=== PATIENT | male | born 2000 | race Two or more races ===

== ENCOUNTER 2023-11-22 09:02 | Emergency (ER) | payer OTHER ==
[~2023-11-22] VITALS: Ht 170.2 cm; Wt 75.3 kg
[2023-11-22 09:53] LABS: Basophils # (auto) 0 10 ^3/uL (0-0.2); Basophils % (auto) 0.5 % (0.0-2.0); Eosinophils # (auto) 0 10 ^3/uL (0-0.8); Eosinophils % (auto) 0.3 % (0.0-7.0); Hematocrit 45.1 % (41.0-53.0); Hemoglobin 15.6 g/dL (13.5-17.5); Lymphocytes # (auto) 1.8 10 ^3/uL (0.4-5.4); Lymphocytes % (auto) 28.8 % (10.0-50.0); Mean Corpuscular Hemoglobin 30.4 pg (28.0-32.0); Mean Corpuscular Hgb Conc. 34.7 g/dL (32.0-36.0); Mean Corpuscular Volume 87.7 fL (80.0-100.0); Monocytes # (auto) 0.3 10 ^3/uL (0-1.3); Monocytes % (auto) 4.3 % (0.0-12.0); Neutrophils % (auto) 66.1 % (37.0-80.0); Nucleated Red Blood Cells % 0.1 %; Platelet Count (auto) 257 10^3/uL (140-450); Red Blood Cells 5.14 10^6/uL (4.5-5.90); Red Cell Distribution Width 12.6 % (11.8-14.3); White Blood Cell 6.1 10^3/uL (4.4-10.8)
[2023-11-22 10:14] LABS: Alanine Aminotransferase 84 U/L (7-40); Albumin 5.2 g/dL (3.2-4.8); Alkaline Phosphatase 160 U/L (46-116); Anion Gap 6 (5-15); Aspartate Aminotransferase 21 U/L (13-40); BUN/Creatinine Ratio 7.9 (10.0-20.0); Blood Urea Nitrogen 10 mg/dL (9-23); Calcium 10.1 mg/dL (8.7-10.4); Carbon Dioxide 28 mmol/L (20-30); Chloride 105 mmol/L (98-107); Glucose 119 mg/dL (74-106); Potassium 4.1 mmol/L (3.5-5.1); Sodium 139 mmol/L (136-145); Total Protein 8.1 g/dL (5.7-8.2)
[2023-11-22 10:31] VITALS: BP 115/63; PULSE 89; RESP 15; TEMP 98; O2SAT 96
[2023-11-22] MEDS ORDERED: TAMS-35 PO (10:33)
[2023-11-22] MEDS ORDERED: IBU600T PO (10:33)
[2023-11-22] MEDS ORDERED: CEPH250C PO (10:37)
[2023-11-22] MEDS: KETOROLAC TROMETH 60MG/2ML VIAL IM ONE (10:49)
[2023-11-22] MEDS: TAMSULOSIN HYDROCHLORIDE 0.4 MG CAP PO ONE (10:49)
[2023-11-22 12:33] LABS: Urine Bacteria None Seen /hpf (None Seen)
[2023-11-22 12:57] LABS: Urine Blood 3+ /uL (Negative); Urine Budding Yeast OCCASIONAL /hpf (None Seen); Urine Clarity Clear (Clear); Urine Color Yellow (Yellow); Urine Mucus FEW (None Seen); Urine Protein, UAD Negative (Negative); Urine Specific Gravity 1.022 (1.001-1.035); Urine Urobilinogen Normal (Negative); Urine WBC 1 /hpf (0 - 3); Urine pH 5.5 (5.0-9.0)
== END 2023-11-22 10:55 | disposition home or self-care (01) ==
LOC: ER 09:02
DX: N23 Unspecified renal colic (principal); Z79.899 Other long term (current) drug therapy
CPT/HCPCS: 36415; 74176; 80053; 81001; 85025; 99284; J1885